=== PATIENT | male | born 2000 | race Caucasian/White ===

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

== ENCOUNTER 2021-02-24 21:56 | Emergency (ER) | payer BC ==
[~2021-02-24] VITALS: Ht 175.3 cm; Wt 72.7 kg
[2021-02-24 22:02] VITALS: TEMP 97.3
[2021-02-24 22:36] LABS: BASO % 0.3 % (0.0-2.0); EOS % 10.6 % (0-4.0); GRAN # 4.4 (1.4-6.5); GRAN % 47.3 % (42.2-75.2); HEMATOCRIT 45.7 % (36.0-47.0); HEMOGLOBIN 15.6 g/dl (12.5-16.1); LYMPH # 3.1 (1.2-3.4); LYMPH % 33.5 % (20.0-51.0); MEAN CELL VOLUME 84 fl (80.0-95.0); MEAN CORPUSCULAR HEMOGLOBIN 29 pg (26.0-32.0); MEAN CORPUSCULAR HGB CONC 34 g/dl (33.0-37.0); MEAN PLATELET VOLUME 9.5 fl (7.4-10.4); MONO # 0.8 (0.1-0.6); MONO % 8.1 % (1.7-9.3); PLATELET COUNT 266 K/mm3 (130-400); RED BLOOD COUNT 5.43 M/mm3 (4.20-5.60); REDCELL DISTRIBUTION WIDTH-CV 12.7 % (11.5-14.5)
[2021-02-24 22:47] LABS: ALBUMIN 4.7 gm/dL (3.5-5.0); BILIRUBIN,TOTAL 0.3 mg/dL (0.0-1.0); CALCIUM 9.6 mg/dL (8.4-10.2); CREATININE, serum 1.05 (0.66-1.25); POTASSIUM 3.6 mmol/L (3.4-5.0); TOTAL PROTEIN 7.9 gm/dL (6.4-8.2)
[2021-02-24] MEDS ORDERED: PRIL40 PO (23:20)
[2021-02-24] MEDS ORDERED: ZOFRAN ODT4 MG PO (23:20)
[2021-02-24 23:35] VITALS: BP 131/81; PULSE 86
== END 2021-02-24 23:35 | disposition home or self-care (01) ==
LOC: COL.ER 21:56
PROVIDERS: Emergency Medicine
DX: K92.0 Hematemesis (principal)
CPT/HCPCS: C9113; J2405; J7030